=== PATIENT | female | born 1985 | race Two or more races ===

== ENCOUNTER 2025-05-24 07:31 | Inpatient (IN) | payer OTHER ==
[~2025-05-24] VITALS: Ht 160 cm; Wt 113.4 kg
--- NOTE | 2025-05-24 07:35 | NUR ---
PACIENTE ALERTA Y ORIENTADA X 3. REFIERE DESDE SEN DOLOR ABDOMINAL, NAUSEAS Y DIARREAS. HOY DIARREAS X 3.
[2025-05-24] MEDS ORDERED: METFORMIN HCL1000 M2 (07:36)
[2025-05-24] MEDS ORDERED: ZESTRIL40 M1 (07:36)
[2025-05-24] MEDS ORDERED: 0.9 % SODIUM CHLORIDE 1,000 ML IV SCH (08:15)
[2025-05-24] MEDS ORDERED: KETOROLAC TROMETHAMINE 30 MG VIAL IU ONE (08:15)
[2025-05-24] MEDS ORDERED: KETOROLAC TROMETHAMINE 30 MG VIAL ONE (08:26)
[2025-05-24] MEDS ORDERED: ONDANSETRON HCL 2 MG/ML VIAL ONE (08:27)
[2025-05-24] MEDS ORDERED: FAMOTIDINE/PF 20 MG/2 ML VIAL ONE (08:27)
[2025-05-24] MEDS ORDERED: ONDANSETRON HCL 4 MG in 0.9 % SODIUM CHLORIDE 50 ML IV ONE (08:30)
[2025-05-24] MEDS ORDERED: FAMOtidine 10 MG/ML (4ML VIAL) IV PUSH ONE (08:30)
--- NOTE | 2025-05-24 08:30 | NUR ---
SE ORIENTA A PACIENTE SOBRE TRATAMIENTO MEDICO, REFIERE ENTENDER. SE COLECTAN MUESTRAS DE LABORATORIO Y SE CANALIZA A PACIENTE BAJO MEDIDAS ASEPTICAS. SE ADMINISTRAN MEDICAMENTOS DEBORAH ORDEN MEDICA. SE ENTREGA ENVASE PARA U/A. PACIENTE MANEJADA POR PETROS FAIR.
[2025-05-24 09:29] LABS: BASO % 0.3 % (0.1-1.2); EOS # 0.42 (0.04-0.54); EOS % 3.6 % (0.7-7.0); LYMPH # 1.72 (1.18-3.74); LYMPH % 14.8 % (19.3-53.1); MEAN PLATELET VOLUME 11.40 fl (9.4-12.4); MONO # 0.81 (0.24-0.82); MONO % 7.0 % (4.7-12.5); NEUT # 8.59 (1.56-6.13); NEUT % 74.0 % (34.0-71.1); RED CELL DISTRIBUTION WIDTH 15.4 % (11.6-14.4)
[2025-05-24 10:27] LABS: ALT/SGPT 22 U/L (12-78); AST/SGOT 15 U/L (15-37); BILIRUBIN TOTAL 0.45 mg/dL (0.3-1.2); BUN CREA RATIO 11 (7.0-25.0); CREATININE SERUM 0.92 mg/dL (0.55-1.02); GFR 67.61; GLOBULINA 4.2 G/DL (2.4-3.5); GLUCOSE FASTING 123 mg/dL (65-100); OSMOLALITY SERUM 280 MOSM/KG (275-295)
[2025-05-24 10:28] LABS: HCG QUANTITATIVE < 1 mUI/mL (1-3)
[2025-05-24 11:17] LABS: URINE APPEARANCE Cloudy; URINE BILIRRUBIN Negative (NEGATIVE); URINE BLOOD Trace; URINE COLOR Yellow; URINE GLUCOSE Negative (NEGATIVE); URINE KETONE Negative (NEGATIVE); URINE LEUKOCYTE Negative; URINE NITRATE Positive; URINE PROTEIN Trace (NEGATIVE); URINE UROBILINOGEN 0.2 E.U./dl
[2025-05-24 11:22] LABS: URINE EPITHELIAL CELLS 104.1 uL (0.0-38.8); URINE RBC 2.6 uL (0.0-20.8); URINE WBC 8.6 uL (0.0-23.2)
[2025-05-24 11:25] LABS: URINE BACTERIA > 9821.5 uL (0.0-1933); URINE CAST 0.14 uL (0.0-1.40)
[2025-05-24] MEDS ORDERED: CEFTRIAXONE SODIUM 2,000 MG in 0.9 % SODIUM CHLORIDE 100 ML IV ONE (11:45)
[2025-05-24] MEDS ORDERED: CEFTRIAXONE SODIUM 2,000 MG VIAL ONE (12:21)
[2025-05-24] MEDS ORDERED: ONDANSETRON HCL 4 MG in DEXTROSE 5 % IN WATER 50 ML IV PRN (17:00)
[2025-05-24] MEDS ORDERED: MORPHINE SULFATE 4 MG/ML CARTRIDGE IV PRN ×2 (17:00→21:46)
[2025-05-24] MEDS ORDERED: MORPHINE SULFATE 4 MG/ML CARTRIDGE IV ONE (17:00)
[2025-05-24] MEDS ORDERED: ACETAMINOPHEN 325 MG TABLET PO PRN (21:45)
[2025-05-24] MEDS ORDERED: KETOROLAC TROMETHAMINE 30 MG VIAL IU PRN (21:45)
[2025-05-24] MEDS ORDERED: ONDANSETRON HCL 4 MG in 0.9 % SODIUM CHLORIDE 50 ML IV PRN (21:45)
[2025-05-24] MEDS ORDERED: INSULIN LISPRO 1,000 UNIT/10 ML UNITS SUBCUTANEO PRN (22:00)
[2025-05-24] MEDS ORDERED: DEXTROSE 50 % IN WATER 0.5 G/ML DISP.SYRIN IV PRN (22:00)
[2025-05-25 02:30] VITALS: BP 129/80; O2SAT 97
[2025-05-25 08:15] VITALS: BP 112/75; O2SAT 99
[2025-05-25] MEDS ORDERED: HYOSCYAMINE SULFATE 0.125 MG TAB.SUBL SL PRN (08:15)
[2025-05-25] MEDS ORDERED: LISINOPRIL 40 MG TABLET PO SCH (09:00)
[2025-05-25] MEDS ORDERED: ACETAMINOPHEN 500 MG GEL..CAP PO PRN (09:00)
[2025-05-25] MEDS ORDERED: CEFTRIAXONE SODIUM 2,000 MG in 0.9 % SODIUM CHLORIDE 100 ML IV SCH (09:00)
[2025-05-25] MEDS ORDERED: FAMOTIDINE/PF 20 MG/2 ML VIAL IV SCH (12:00)
[2025-05-25 16:00] VITALS: BP 145/73; O2SAT 99
[2025-05-25] MEDS ORDERED: LACTOBACILLUS ACIDOPHILUS 1 CAP CAP PO SCH (17:00)
[2025-05-26 00:33] VITALS: BP 137/82; O2SAT 100
[2025-05-26 08:00] VITALS: BP 154/82; O2SAT 99
[2025-05-26 17:42] VITALS: BP 148/79; O2SAT 98
[2025-05-27 02:18] VITALS: BP 150/84; O2SAT 99
[2025-05-27 08:00] VITALS: BP 145/78; O2SAT 99
[2025-05-27 10:58] LABS: BASO % 0.3 % (0.1-1.2); EOS # 0.36 (0.04-0.54); EOS % 3.9 % (0.7-7.0); LYMPH # 3.07 (1.18-3.74); LYMPH % 33.4 % (19.3-53.1); MEAN PLATELET VOLUME 11.00 fl (9.4-12.4); MONO # 0.61 (0.24-0.82); MONO % 6.6 % (4.7-12.5); NEUT # 5.08 (1.56-6.13); NEUT % 55.5 % (34.0-71.1); RED CELL DISTRIBUTION WIDTH 15.9 % (11.6-14.4)
[2025-05-27 11:55] LABS: URINE APPEARANCE Clear; URINE BILIRRUBIN Negative (NEGATIVE); URINE BLOOD Negative; URINE COLOR Yellow; URINE GLUCOSE Negative (NEGATIVE); URINE KETONE Negative (NEGATIVE); URINE LEUKOCYTE Negative; URINE NITRATE Negative; URINE PROTEIN Negative (NEGATIVE); URINE UROBILINOGEN 0.2 E.U./dl
[2025-05-27 11:59] LABS: URINE BACTERIA 11.9 uL (0.0-1933); URINE CAST 0.00 uL (0.0-1.40); URINE EPITHELIAL CELLS 4.2 uL (0.0-38.8); URINE RBC 6.2 uL (0.0-20.8); URINE WBC 3.0 uL (0.0-23.2)
== END 2025-05-27 14:40 | disposition home or self-care (01) | DRG 690 ==
LOC: ER 07:31 → SURG 21:46 → SURH 21:46
PROVIDERS: General Practice; ADMIT Internal Medicine; ATTEND Internal Medicine
PROC: BW21ZZZ Computerized Tomography (CT Scan) of Abdomen and Pelvis (ICD-10-PCS; principal; 2025-05-24)
DX: N39.0 Urinary tract infection, site not specified (principal); K52.9 Noninfective gastroenteritis and colitis, unspecified